=== PATIENT | male | born 1960 | race Caucasian/White ===

== ENCOUNTER 2019-05-18 08:15 | Emergency (ER) | payer OTHER ==
[2019-05-18 09:45] LABS: Absolute Lymphocytes (CBC) 0.7 K/uL (0.7-4.9); Basophils % 0.2 % (0-1.3); Eosinophils % 0.2 % (0-4.4); Hematocrit 45.9 % (39.6-49.0); Lymphocytes % 6.4 % (15.3-44.8); Monocytes % 8.1 % (3.3-12.3); RBC Red Blood Cell Count 4.94 M/uL (4.33-5.43)
--- NOTE | 2019-05-18 10:02 | EDPHYS ---
Physician Documentation [facility] Name: Cristian Horn Age: 58 yrs Sex: Male : 1960 Arrival Date: 05/18/2019 Time: 08:16 Bed 20 Private MD: ED Physician Rock Conway HPI: 05/18 09:54 This 58 yrs old Male presents to ER via Ambulatory with complaints of High gs Blood Pressure. 09:54 The patient has elevated blood pressure and discovered this at home. Onset: The gs symptoms/episode began/occurred 1 week(s) ago, and became worse and became persistent. Modifying factors: The symptoms are aggravated by nothing. Associated signs and symptoms: Pertinent negatives: chest pain, headache. Severity of symptoms: At its worst the blood pressure was moderate, in the emergency department the blood pressure is unchanged. The patient has experienced similar episodes in the past, a few times. Historical: - Allergies: 08:25 No Known Allergies; rb1 - Home Meds: 08:25 None [Active]; rb1 - PMHx: 08:25 Hypertension; rb1 - PSHx: 08:25 None; rb1 - Immunization history:: Adult Immunizations unknown. - Social history:: Smoking status: . - Ebola Screening: : No symptoms or risks identified at this time. ROS: 09:54 All other systems are negative. gs Exam: 09:54 Head/Face: Normocephalic, atraumatic. Eyes: Pupils equal round and reactive to light, gs extra-ocular motions intact. Lids and lashes normal. Conjunctiva and sclera are non-icteric and not injected. Cornea within normal limits. Periorbital areas with no swelling, redness, or edema. ENT: Nares patent. No nasal discharge, no septal abnormalities noted. Tympanic membranes are normal and external auditory canals are clear. Oropharynx with no redness, swelling, or masses, exudates, or evidence of obstruction, uvula midline. Mucous membranes moist. Neck: Trachea midline, no thyromegaly or masses palpated, and no cervical lymphadenopathy. Supple, full range of motion without nuchal rigidity, or vertebral point tenderness. No Meningismus. Chest/axilla: Normal chest wall appearance and motion. Nontender with no deformity. No lesions are appreciated. Cardiovascular: Regular rate and rhythm with a normal S1 and S2. No gallops, murmurs, or rubs. Normal PMI, no JVD. No pulse deficits. Respiratory: Lungs have equal breath sounds bilaterally, clear to auscultation and percussion. No rales, rhonchi or wheezes noted. No increased work of breathing, no retractions or nasal flaring. Abdomen/GI: Soft, non-tender, with normal bowel sounds. No distension or tympany. No guarding or rebound. No evidence of tenderness throughout. Back: No spinal tenderness. No costovertebral tenderness. Full range of motion. Skin: Warm, dry with normal turgor. Normal color with no rashes, no lesions, and no evidence of cellulitis. MS/ Extremity: Pulses equal, no cyanosis. Neurovascular intact. Full, normal range of motion. Neuro: Awake and alert, GCS 15, oriented to person, place, time, and situation. Cranial nerves II-XII grossly intact. Motor strength 5/5 in all extremities. Sensory grossly intact. Cerebellar exam normal. Normal gait. 09:54 Constitutional: The patient appears alert, awake. Vital Signs: 08:27 BP 162 / 97; Pulse 76; Resp 18; Temp 98.3(O); Pulse Ox 100% on R/A; Weight 88.45 kg rb1 (R); Height 6 ft. 2 in. (187.96 cm) (R); Pain 2/10; 09:27 BP 141 / 80; Pulse 72; Resp 18; Pulse Ox 100% on R/A; Pain 1/10; ph 10:06 BP 139 / 86; Pulse 72; Resp 18; Temp 98.0; Pulse Ox 100% on R/A; ph 08:27 Body Mass Index 25.04 (88.45 kg, 187.96 cm) rb1 MDM: 08:30 Patient medically screened. 09:54 Data reviewed: vital signs, nurses notes, lab test result(s), EKG. Counseling: I had a gs detailed discussion with the patient and/or guardian regarding: the historical points, exam findings, and any diagnostic results supporting the discharge/admit diagnosis, the presence of at least one elevated blood pressure reading (>120/80) during this emergency department visit, lab results, the need for outpatient follow up. Response to treatment: the patient's symptoms have mildly improved after treatment, and as a result, I will discharge patient. Special discussion: I have referred the patient to see his PCP for further evaluation of high blood pressure. 05/18 08:33 Order name: CBC with Diff 05/18 08:33 Order name: Basic Metabolic Panel; Complete Time: 09:54 05/18 08:33 Order name: EKG; Complete Time: 08:33 05/18 08:33 Order name: EKG - Nurse/Tech; Complete Time: 09:59 05/18 10:18 Order name: Manual Differential EDMS Administered Medications: No medications were administered Disposition: 05/18/19 10:01 Discharged to Home. Impression: Essential (primary) hypertension. - Condition is Stable. - Discharge Instructions: Hypertension, Managing Your Hypertension. - Medication Reconciliation Form, Thank You Letter, Antibiotic Education, Prescription Opioid Use form. - Follow up: Private Physician; When: 2 - 3 days; Reason: Re-evaluation by your physician. Signatures: Dispatcher [employer] EDLalita Jaimes RN RN Zo Hester RN RN [facility] Rock Conway MD MD Corrections: (The following items were deleted from the chart) 10:23 10:01 05/18/2019 10:01 Discharged to Home. Impression: Essential (primary) ph hypertension. Condition is Stable. Forms are Medication Reconciliation Form, Thank You Letter, Antibiotic Education, Prescription Opioid Use. Follow up: Private Physician; When: 2 - 3 days; Reason: Re-evaluation by your physician. gs
--- NOTE | 2019-05-18 10:02 | ER ---
Nurse's Notes [facility] Name: Cristian Horn Age: 58 yrs Sex: Male : 1960 Arrival Date: 05/18/2019 Time: 08:16 Bed 20 Private MD: Diagnosis: Essential (primary) hypertension Presentation: 05/18 08:25 Presenting complaint: Patient states: Started having chest tightness and high blood rb1 pressure 2-3 days ago. Cough x 3 days, non-productive. Denies fever, N/V/D. 08:25 Acuity: ANALISA 3 rb1 08:29 Transition of care: patient was not received from another setting of care. Onset of ph symptoms was May 18, 2019. Risk Assessment: Do you want to hurt yourself or someone else? Patient reports no desire to harm self or others. Initial Sepsis Screen: Does the patient meet any 2 criteria? No. Patient's initial sepsis screen is negative. Does the patient have a suspected source of infection? No. Patient's initial sepsis screen is negative. 08:30 Method Of Arrival: Ambulatory 08:30 Care prior to arrival: None. ph Triage Assessment: 08:25 General: Appears in no apparent distress. comfortable, Behavior is calm, cooperative, rb1 Denies fever, feeling ill. Pain: Complains of pain in chest Pain currently is 2 out of 10 on a pain scale. Pain began 2-3 days ago. Pt. describes chest tightness not pain. Neuro: Level of Consciousness is awake, alert, obeys commands, Oriented to person, place, time, situation. Cardiovascular: Capillary refill < 3 seconds is brisk in bilateral fingers. Respiratory: Reports cough that is non-productive, since x 3 days Airway is patent Respiratory effort is even, unlabored, Respiratory pattern is regular, symmetrical. GI: No signs and/or symptoms were reported involving the gastrointestinal system. : No signs and/or symptoms were reported regarding the genitourinary system. Derm: Skin is pink, warm \\T\\ dry. Musculoskeletal: Range of motion: intact in all extremities. Historical: - Allergies: 08:25 No Known Allergies; rb1 - Home Meds: 08:25 None [Active]; rb1 - PMHx: 08:25 Hypertension; rb1 - PSHx: 08:25 None; rb1 - Immunization history:: Adult Immunizations unknown. - Social history:: Smoking status: . - Ebola Screening: : No symptoms or risks identified at this time. Screenin:28 Abuse screen: Denies threats or abuse. Denies injuries from another. Nutritional ph screening: No deficits noted. Tuberculosis screening: No symptoms or risk factors identified. Fall Risk None identified. Assessment: 09:00 General: Appears in no apparent distress. comfortable, slender, well groomed, Behavior ph is calm, cooperative, appropriate for age. Pain: Complains of pain in chest Pain currently is 1 out of 10 on a pain scale. Quality of pain is described as "tightness". Neuro: Level of Consciousness is awake, alert, obeys commands, Oriented to person, place, time, situation. Cardiovascular: Reports chest pain, lightheadedness, Denies fatigue, nausea, shortness of breath, Capillary refill < 3 seconds in bilateral fingers Patient's skin is warm and dry. Rhythm is sinus rhythm Chest pain is described as vague, quality is "tightness". Respiratory: Airway is patent Respiratory effort is even, unlabored, Respiratory pattern is regular, symmetrical. Derm: Skin is intact, is healthy with good turgor, Skin is pink, warm \\T\\ dry. Musculoskeletal: Circulation, motion, and sensation intact. Range of motion: intact in all extremities. Vital Signs: 08:27 BP 162 / 97; Pulse 76; Resp 18; Temp 98.3(O); Pulse Ox 100% on R/A; Weight 88.45 kg rb1 (R); Height 6 ft. 2 in. (187.96 cm) (R); Pain 2/10; 09:27 BP 141 / 80; Pulse 72; Resp 18; Pulse Ox 100% on R/A; Pain 1/10; ph 10:06 BP 139 / 86; Pulse 72; Resp 18; Temp 98.0; Pulse Ox 100% on R/A; ph 08:27 Body Mass Index 25.04 (88.45 kg, 187.96 cm) rb1 ED Course: 08:16 Patient arrived in ED. as 08:20 Rock Conway MD is Attending Physician. gs 08:28 Lalita Romero RN is Primary Nurse. ph 08:29 Patient has correct armband on for positive identification. Placed in gown. Bed in low ph position. Call light in reach. Side rails up X 1. Pulse ox on. NIBP on. Door closed. Noise minimized. 08:30 Arm band placed on Patient placed in an exam room. ph 08:36 Triage completed. rb1 09:02 EKG done, by hearing health technician. reviewed by Rock Conway MD. tc 09:25 Inserted saline lock: 20 gauge in right antecubital area, using aseptic technique. ph 10:07 No provider procedures requiring assistance completed. IV discontinued, intact, ph bleeding controlled, No redness/swelling at site. Pressure dressing applied. Administered Medications: No medications were administered Outcome: 10:01 Discharge ordered by . gs 10:07 Discharged to home ambulatory, with family. ph 10:07 Condition: good 10:07 Discharge instructions given to patient, Instructed on discharge instructions, follow up and referral plans. Demonstrated understanding of instructions, follow-up care. 10:23 Patient left the ED. ph Signatures: Gabriela Ansari Tiffany, packing inspector EKG Ttc Lalita Romero RN RN ph Barber, Rebecca, RN RN [facility] Rock Conway MD MD
[2019-05-18 10:17] LABS: Blood Morphology Comment NOT SEEN (NOT SEEN); Platelet Estimate ADEQ
--- NOTE | 2019-05-18 14:52 | EKG ---
Test Date: 2019-05-18 Test Time: 08:53:09 Career And Transition Teacher: JANIE MEASUREMENT RESULTS: Intervals: Rate: 77 UT: 156 QRSD: 94 QT: 362 QTc: 409 [place]: P: 67 UT: 156 QRS: 67 T: 28 INTERPRETIVE STATEMENTS: Normal sinus rhythm Normal ECG No previous ECG available for comparison Electronically Signed On 05-18-19 14:51:23 CDT by Jian Recinos
== END 2019-05-18 10:23 | disposition home or self-care (01) ==
LOC: ER 08:15
DX: I10 Essential (primary) hypertension (principal)
CPT/HCPCS: 36415; 80048; 85025; 93005; 99284